=== PATIENT | female | born 1985 | race Two or more races ===

== ENCOUNTER 2018-08-02 13:21 | Emergency (ER) | payer OTHER ==
[~2018-08-02] VITALS: Ht 152.4 cm; Wt 136.1 kg
[2018-08-02] MEDS ORDERED: HYDROCODONE/APAP 5-325MG TABLET PO ONE (14:15)
[2018-08-02] MEDS ORDERED: HYDROCODONE/APAP 5-325MG TABLET ONE (14:24)
[2018-08-02 14:35] LABS: *URINE HCG, QUAL NEGATIVE (NEGATIVE)
--- NOTE | 2018-08-02 16:57 | NUR ---
Patient discharged to home in stable conditon. Written and verbal after care instructions given. Patient verbalizes understanding of instructions.
== END 2018-08-02 16:58 | disposition home or self-care (01) ==
LOC: ER 13:21
DX: S20.211A Contusion of right front wall of thorax, initial encounter (principal); I51.7 Cardiomegaly; M25.511 Pain in right shoulder; M54.2 Cervicalgia; W01.0XXA Fall on same level from slipping, tripping and stumbling without subsequent striking against object, initial encounter; Y93.89 Activity, other specified; Y92.89 Other specified places as the place of occurrence of the external cause; Y99.0 Civilian activity done for income or pay
CPT/HCPCS: 71046; 71250; 72125; 84703; A4663